=== PATIENT | male | born 1985 ===

== ENCOUNTER 2024-11-16 07:25 | Day surgery (SDC) | payer OTHER ==
[~2024-11-16] VITALS: Ht 189 cm; Wt 177.0 kg
[~2024-11-16 07:25] MED LIST: Lactated Ringer's 1,000 ML IV SCH
[2024-11-16 08:27] VITALS: BP 141/99
--- NOTE | 2024-11-16 08:36 | NUR ---
History, Chart, Medications and Allergies reviewed before start of procedure. Patient up to Ambulate independently. Gait steady. Pre-Op teaching done. Pt verbalizes understanding. Patient confirms NPO status and agrees with scheduled surgery. Patient states colon prep results clear. Lungs clear T/O to Auscultation. Patient States Post-Procedure ride home has been arranged.
[2024-11-16] MEDS ORDERED: propofoL 20 ML IV ONE ×2 (09:09→09:12)
--- NOTE | 2024-11-16 09:15 | NUR ---
11/16/24 0915 Roberta Figueroa MONITOR INTACT WITH CONTINUOUS PULSE OXIMETRY, CONTINUOUS END TITAL CO2, AND INTERMITTENT BLOOD PRESSURE. O2 VIA POM INTACT THROUGHOUT SEDATION/PROCEDURE. SEE DR. MALDONADO'S RECORD FOR SEDATION
[2024-11-16] MEDS ORDERED: propofoL 0 ML IV ONE (09:24)
[2024-11-16] MEDS ORDERED: Midazolam HCL 1 MG/ML 5MLVIAL ONE (09:29)
[2024-11-16 09:51] VITALS: BP 159/89
[2024-11-16 10:14] VITALS: BP 151/98
--- NOTE | 2024-11-16 10:25 | NUR ---
Discharge instructions reviewed with patient. Patient verbalizes understanding. Copy given to patient to take home. Patient States Post-Procedure ride home has been arranged. Discharged via wheelchair to private car for ride home.
[2024-11-16] MEDS ORDERED: Lactated Ringer's 1,000 ML IV ONE (10:58)
== END 2024-11-16 10:27 | disposition home or self-care (01) ==
LOC: ORSCMMR 07:25 → ORD 09:00 → ORSCMMR 10:27
PROVIDERS: Internal Medicine Gastroenterology
PROC: 0DBH8ZX Excision of Cecum, Via Natural or Artificial Opening Endoscopic, Diagnostic (ICD-10-PCS; principal; 2024-11-16 09:00)
DX: Z12.11 Encounter for screening for malignant neoplasm of colon (principal); Z80.0 Family history of malignant neoplasm of digestive organs; D12.0 Benign neoplasm of cecum; G47.33 Obstructive sleep apnea (adult) (pediatric); I10 Essential (primary) hypertension; E66.9 Obesity, unspecified; E66.01 Morbid (severe) obesity due to excess calories; Z68.42 Body mass index [BMI] 45.0-49.9, adult
CPT/HCPCS: 88305; J2250; J2704; J7120